=== PATIENT | male | born 1960 | race Hispanic/Latino ===

== ENCOUNTER 2018-11-30 19:20 | Emergency (ER) | payer OTHER | END 2018-11-30 19:55 | disposition home or self-care (01) | LOC: EDH 19:20 | DX: J06.9 Acute upper respiratory infection, unspecified (principal); E11.9 Type 2 diabetes mellitus without complications; E78.5 Hyperlipidemia, unspecified; I10 Essential (primary) hypertension | CPT/HCPCS: 99281 ==